=== PATIENT | male | born 1955 | race Caucasian/White ===

== ENCOUNTER 2022-09-30 09:53 | Emergency (ER) | payer OTHER ==
[~2022-09-30] VITALS: Ht 167.6 cm; Wt 102.6 kg
[2022-09-30] MEDS ORDERED: ASPIRIN81 MG PO (10:12)
[2022-09-30] MEDS ORDERED: CYMBALTA60 MG PO (10:13)
[2022-09-30] MEDS ORDERED: ZETIA10 MG PO (10:14)
[2022-09-30] MEDS ORDERED: NOVOLIN N100 UNIT/1 SUB-Q (10:14)
[2022-09-30] MEDS ORDERED: METFORMIN HCL500 MG PO (10:15)
[2022-09-30] MEDS ORDERED: HYDROCODON-ACE1 EA10 PO (12:02)
[2022-09-30] MEDS ORDERED: CIPRO500 MG PO (12:02)
[2022-09-30] MEDS ORDERED: ONDANSETRON ODT8 MG PO (12:02)
[2022-09-30] MEDS ORDERED: METRONIDAZOLE500 MG PO (12:02)
[2022-09-30 12:19] VITALS: BP 122/88
== END 2022-09-30 12:19 | disposition home or self-care (01) ==
LOC: ED 09:53
DX: K57.12 Diverticulitis of small intestine without perforation or abscess without bleeding (principal); E11.9 Type 2 diabetes mellitus without complications; I10 Essential (primary) hypertension; Z88.8 Allergy status to other drugs, medicaments and biological substances; Z79.82 Long term (current) use of aspirin; Z79.899 Other long term (current) drug therapy; Z79.84 Long term (current) use of oral hypoglycemic drugs
CPT/HCPCS: 36415; 74177; 80053; 83690; 85025; J2270; J2405; J7030; Q9967